=== PATIENT | female | born 1970 | race Caucasian/White ===

== ENCOUNTER → 2016-06-19 | Outpatient (CLI) | payer OTHER ==
--- NOTE | 2016-06-19 11:43 | REP ---
PELVIC SONOGRAPHY: HISTORY: Bilateral ovarian cysts. Comparison study September 14, 2015. FINDINGS: Transabdominal and transvaginal scanning are performed. Uterine dimensions are normal at 8.1 x 3.9 x 5.4 cm. Endometrial echo is 0.4 cm thick and centrally placed. Visualized bladder villarreal are smooth. No free fluid is seen. Normal right ovary is seen with dimensions of 2.9 x 1.6 x 2.0 cm. Left ovary measures 2.5 x 1.8 x 3.3 cm. There is a 1.6 cm follicle cyst in the left ovary. No significant ovarian cyst is seen. IMPRESSION: Normal pelvic sonography.
== END ==
LOC: M WHC 08:57
PROVIDERS: ATTEND Nurse Practitioner Family
DX: N83.201 Unspecified ovarian cyst, right side (principal); N83.202 Unspecified ovarian cyst, left side

== ENCOUNTER → 2016-08-23 | Outpatient (REF) | payer OTHER ==
[2016-08-23 13:06] LABS: BASO % 0.6 % (0.0-1.0); EOS # 0.4 K/mm3 (0.0-0.50); EOS % 4.3 % (0.0-3.0); LARGE UNSTAINED CELL # 0.2 K/mm3 (0.0-0.4); LARGE UNSTAINED CELL % 1.9 % (0.0-4.0); LYMPH # 2.5 K/mm3 (1.5-4.5); LYMPH % 29.1 % (24.0-44.0); MEAN CORPUSCULAR HEMOGLOBIN 34.1 pg (27.0-33.0); MEAN CORPUSCULAR HGB CONC 34.9 g/dl (32.0-36.5); MEAN CORPUSCULAR VOLUME 97.5 fl (80.0-96.0); MONO # 0.5 K/mm3 (0.0-0.8); NEUTROPHILS # 4.7 K/mm3 (1.8-7.7); NEUTROPHILS % 58.1 % (36.0-66.0); PLATELET COUNT, AUTOMATED 375 k/mm3 (150-450); RED CELL DISTRIBUTION WIDTH 12.7 % (11.5-14.5); WHITE BLOOD COUNT 8.1 K/mm3 (4.0-10.0)
[2016-08-23 13:43] LABS: ALBUMIN 4.1 GM/DL (3.2-5.2); ALBUMIN/GLOBULIN RATIO 1.37 (1.00-1.93); ALKALINE PHOSPHATASE 92 U/L (45-117); ALT/SGPT 32 U/L (12-78); ANION GAP 7 MEQ/L (8-16); AST/SGOT 24 U/L (15-37); BILIRUBIN,TOTAL 0.4 MG/DL (0.2-1.0); BLOOD UREA NITROGEN 10 MG/DL (7-18); CARBON DIOXIDE LEVEL 27 MEQ/L (21-32); CHLORIDE LEVEL 104 MEQ/L (98-107); CHOLESTEROL LEVEL 194 MG/DL (<200); CREATININE FOR GFR 0.73 MG/DL (0.55-1.02); GLOMERULAR FILTRATION RATE > 60.0 (>58); GLUCOSE, FASTING 82 MG/DL (70-105); POTASSIUM SERUM 4.1 MEQ/L (3.5-5.1); SODIUM LEVEL 138 MEQ/L (136-145); TOTAL PROTEIN 7.1 GM/DL (6.4-8.2); TRIGLYCERIDES LEVEL 82 MG/DL (<150)
== END ==
LOC: M LABDRAW1 11:51
PROVIDERS: ATTEND Emergency Medicine
DX: M47.812 Spondylosis without myelopathy or radiculopathy, cervical region (principal)

== ENCOUNTER → 2016-10-28 | Outpatient (REF) | payer OTHER ==
[~2016-10-28] MED LIST: MAGN400C2 PO; SERT-155 PO; VITA200015 PO
== END ==
LOC: M SFHCWAGY 10:10
PROVIDERS: ATTEND Nurse Practitioner Family
DX: Z12.4 Encounter for screening for malignant neoplasm of cervix (principal)

== ENCOUNTER → 2016-10-28 | Outpatient (CLI) | payer OTHER ==
--- NOTE | 2016-10-28 12:25 | REPMRS ---
Patient History The patient states she had a clinical breast exam in 10/2016. Family history of breast cancer in mother at age 58, colorectal cancer in mother, ovarian cancer in maternal aunt under age 50, breast cancer in maternal aunt at age 50 or over, and endometrial cancer in maternal aunt under age 50. Digital Woman Screen Mammo: October 28, 2016 - Exam #: [id number] Bilateral CC and MLO view(s) were taken. Technologist: Tricia Pittman, Technologist Prior study comparison: October 31, 2015, digital woman screen mammo performed at [facility]. October 25, 2014, digital woman screen mammo performed at [facility]. FINDINGS: The breast tissue is heterogeneously dense. This may lower the sensitivity of mammography. There has been no change in the appearance of the mammogram from the prior studies. There is a moderate amount of residual fibroglandular tissue which is fairly symmetric. There is no interval development of dominant mass, areas of architectural distortion, or clustered microcalcification typical of malignancy. ASSESSMENT: BI-RADS/ACR category 1 mammogram. Negative. Recommendation Routine screening mammogram in 1 year (for women over age 40). This mammogram was interpreted with the aid of an FDA-approved computer-aided dectection system. Electronically Signed By: Ra Fink MD 10/28/16 [id number]
== END ==
LOC: M WHC 09:15
PROVIDERS: ATTEND Nurse Practitioner Family
DX: Z12.31 Encounter for screening mammogram for malignant neoplasm of breast (principal)

== ENCOUNTER 2016-12-12 13:22 | Outpatient (CLI) | payer OTHER ==
[~2016-12-12] VITALS: Ht 162.6 cm; Wt 75.3 kg
[2016-12-12] MEDS ORDERED: LIDOCAINE 2% INJ 100 MG/5 ML SDV (FOR ANES.) As Ordered ONE (14:53)
[2016-12-12] MEDS ORDERED: PROPOFOL 200 MG/20 ML VIAL As Ordered ONE (14:53)
[2016-12-12] MEDS ORDERED: NS 1,000 ML IV SCH (15:15)
--- NOTE | 2016-12-12 15:34 | ROOR ---
Patient Name: Niurka Salazar Procedure Date: 12/12/2016 3:12 PM Date of : 1970 Age: 46 Room: [facility] Gender: Female Note Status: Finalized Procedure: Colonoscopy Indications: Screening in patient at increased risk: Colorectal cancer in mother before age 60, (age 38), Providers: Klaus MORA MD Referring MD: TAWNYA PUGA MD Requesting Provider: Medicines: Monitored Anesthesia Care Complications: No immediate complications. Procedure: Pre-Anesthesia Assessment: - The heart rate, respiratory rate, oxygen saturations, blood pressure, adequacy of pulmonary ventilation, and response to care were monitored throughout the procedure. The Colonoscope was introduced through the anus and advanced to the cecum, identified by appendiceal orifice and ileocecal valve. The colonoscopy was performed without difficulty. The patient tolerated the procedure well. The quality of the bowel preparation was good. Findings: The perianal and digital rectal examinations were normal. (Exam: Complete, Prep: Good or Excellent.) Small Internal Hemorrhoids. The entire examined colon appeared normal on direct and retroflexion views. Impression: - (Exam: Complete, Prep: Good or Excellent.) - Small Internal Hemorrhoids. - The entire examined colon is normal on direct and retroflexion views. - No specimens collected. Recommendation: - Repeat colonoscopy in 5 years for screening purposes. - Repeat colonoscopy to be determined based on genetic testing results. Klaus Mora MD Klaus MORA MD 12/12/2016 3:34:30 PM This report has been signed electronically. Number of Addenda: 0 Note Initiated On: 12/12/2016 3:12 PM Estimated Blood Loss: Estimated blood loss: none.
[2016-12-12 15:35] VITALS: BP 98/48
== END 2016-12-12 16:02 | disposition home or self-care (01) ==
LOC: M OPP 13:22
PROVIDERS: ATTEND Internal Medicine Gastroenterology
DX: Z12.11 Encounter for screening for malignant neoplasm of colon (principal); Z80.0 Family history of malignant neoplasm of digestive organs; K64.8 Other hemorrhoids; M19.90 Unspecified osteoarthritis, unspecified site; M54.5 Low back pain; M79.7 Fibromyalgia; F32.9 Major depressive disorder, single episode, unspecified; G43.909 Migraine, unspecified, not intractable, without status migrainosus; R06.83 Snoring; M25.569 Pain in unspecified knee; Z80.3 Family history of malignant neoplasm of breast; Z80.8 Family history of malignant neoplasm of other organs or systems; Z80.41 Family history of malignant neoplasm of ovary; F17.210 Nicotine dependence, cigarettes, uncomplicated; Z79.899 Other long term (current) drug therapy

== ENCOUNTER → 2017-08-22 | Outpatient (REF) | payer OTHER ==
[2017-08-22 12:39] LABS: TOTAL 25(OH) VITAMIN D 17.1 NG/ML (30.0-100.0)
[2017-08-22 12:56] LABS: ALBUMIN 4.2 GM/DL (3.2-5.2); ALBUMIN/GLOBULIN RATIO 1.35 (1.00-1.93); ALKALINE PHOSPHATASE 80 U/L (45-117); ALT/SGPT 54 U/L (12-78); ANION GAP 9 MEQ/L (8-16); AST/SGOT 25 U/L (7-37); BILIRUBIN,TOTAL 0.5 MG/DL (0.2-1.0); BLOOD UREA NITROGEN 10 MG/DL (7-18); CALCIUM LEVEL 9.2 MG/DL (8.5-10.1); CARBON DIOXIDE LEVEL 27 MEQ/L (21-32); CHLORIDE LEVEL 108 MEQ/L (98-107); CHOLESTEROL LEVEL 201 MG/DL (<200); CREATININE FOR GFR 0.82 MG/DL (0.55-1.30); GLOMERULAR FILTRATION RATE > 60.0 (>58); GLUCOSE, FASTING 92 MG/DL (70-100); HDL CHOLESTEROL 50 MG/DL (>40); LDL CHOLESTEROL 117.6 MG/DL (<100); NON-HDL-C 151 MG/DL; POTASSIUM SERUM 4.2 MEQ/L (3.5-5.1); SODIUM LEVEL 144 MEQ/L (136-145); TOTAL PROTEIN 7.3 GM/DL (6.4-8.2); TRIGLYCERIDES LEVEL 167 MG/DL (<150)
== END ==
LOC: M LABDRAW1 10:51
DX: M47.812 Spondylosis without myelopathy or radiculopathy, cervical region (principal)
CPT/HCPCS: 80053

== ENCOUNTER → 2018-03-23 | Outpatient (CLI) | payer OTHER ==
--- NOTE | 2018-03-23 10:57 | REPMRS ---
Patient History The patient states she had a clinical breast exam in 03/2018. Family history of colorectal cancer and breast cancer at age 58 in mother, breast cancer at age 50 or over in maternal aunt, ovarian cancer under age 50 and endometrial cancer under age 50 in maternal aunt. No Hormone Replacement Therapy Digital Woman Screen Mammo: March 23, 2018 - Exam #: [id number] Bilateral CC and MLO view(s) were taken. Technologist: Tricia Pittman, Technologist Prior study comparison: October 28, 2016, digital woman screen mammo performed at [facility]. October 31, 2015, digital woman screen mammo performed at [facility]. October 25, 2014, digital woman screen mammo performed at [facility]. FINDINGS: The breast tissue is heterogeneously dense. This may lower the sensitivity of mammography. There is a moderate amount of heterogeneously dense fibroglandular tissue which is fairly symmetric. There is no interval development of dominant mass, architectural distortion, or clustered microcalcification typical of malignancy. There has been no change in the appearance of the mammogram from the prior studies. 3-D tomosynthesis shows no additional findings. Assessment: BI-RADS/ACR category 1 mammogram. Negative. Recommendation Breast MRI of both breasts in 6 months. Routine screening mammogram of both breasts in 1 year (for women over age 40). This patient's Lifetime Breast Cancer RIsk is estimated at 22.3 %. Annual screening Breast MRI scanniing is recommended for patient's whose lifetime risk assessment is over 20%. This mammogram was interpreted with the aid of an FDA-approved computer-aided dectection system. Electronically Signed By: Alfonzo Bell MD 03/23/18 [id number]
== END ==
LOC: M WHC 09:34
PROVIDERS: ATTEND Nurse Practitioner Family
DX: Z12.31 Encounter for screening mammogram for malignant neoplasm of breast (principal); Z80.0 Family history of malignant neoplasm of digestive organs

== ENCOUNTER → 2018-03-23 | Outpatient (REF) | payer OTHER ==
[2018-03-26 14:54] LABS: HPV HYBRID CAPTURE II Negative (Negative)
== END ==
LOC: M SFHCWAGY 09:55
PROVIDERS: ATTEND Nurse Practitioner Family
DX: Z12.4 Encounter for screening for malignant neoplasm of cervix (principal); N88.0 Leukoplakia of cervix uteri
CPT/HCPCS: 87624; G0123

== ENCOUNTER → 2018-09-08 | Outpatient (REF) | payer OTHER ==
[~2018-09-08] MED LIST changes: -SERT-155 PO; +SERT50TA29 PO
[2018-09-08 15:49] LABS: BASO # 0.1 10^3/uL (0.0-0.2); BASO % 0.6 % (0.0-1.0); EOS # 0.2 10^3/uL (0.0-0.50); HEMATOCRIT 42.5 % (36.0-47.0); HEMOGLOBIN 14.4 g/dl (12.0-15.5); LYMPH # 2.6 10^3/uL (1.5-4.5); LYMPH % 23.4 % (24.0-44.0); MEAN CORPUSCULAR HGB CONC 33.9 g/dl (32.0-36.5); MEAN CORPUSCULAR VOLUME 97.3 fl (80.0-96.0); MONO # 0.7 10^3/uL (0.0-0.8); MONO % 6.3 % (0.0-5.0); NEUTROPHILS # 7.5 10^3/uL (1.8-7.7); NEUTROPHILS % 67.3 % (36.0-66.0); PLATELET COUNT, AUTOMATED 341 10^3/uL (150-450); RED BLOOD COUNT 4.37 10^6/uL (4.00-5.40); WHITE BLOOD COUNT 11.1 10^3/uL (4.0-10.0)
[2018-09-08 16:19] LABS: ALBUMIN 4.1 GM/DL (3.2-5.2); ALT/SGPT 58 U/L (12-78); BILIRUBIN,TOTAL 0.4 MG/DL (0.2-1.0); BLOOD UREA NITROGEN 11 MG/DL (7-18); CALCIUM LEVEL 8.9 MG/DL (8.5-10.1); CARBON DIOXIDE LEVEL 23 MEQ/L (21-32); CHLORIDE LEVEL 106 MEQ/L (98-107); GLOMERULAR FILTRATION RATE > 60.0 (>58); GLUCOSE, FASTING 89 MG/DL (70-100); POTASSIUM SERUM 4.5 MEQ/L (3.5-5.1); SODIUM LEVEL 138 MEQ/L (136-145); TOTAL PROTEIN 7.2 GM/DL (6.4-8.2)
[2018-09-09 11:44] LABS: HEPATITIS A ANTIBODY IGM NEGATIVE (NEGATIVE)
== END ==
LOC: M LABDRAW1 11:19
PROVIDERS: ATTEND Physician Assistant
DX: R10.9 Unspecified abdominal pain (principal)

== ENCOUNTER → 2018-09-28 | Outpatient (CLI) | payer OTHER ==
[~2018-09-28] MED LIST changes: +PROHANCE 279.3MG/ML 15ML VIAL (A9576) As Ordered ONE; +SERT-155 PO; -SERT50TA29 PO
--- NOTE | 2018-09-29 09:56 | REP ---
MRI BILATERAL BREASTS WITH AND WITHOUT CONTRAST: COMPARISON MAMMOGRAM: 03/23/2018. Marii lifetime risk of breast cancer 22.3%. TECHNIQUE: Multiple sequences were obtained in the axial, coronal and sagittal planes prior to and following the intravenous administration of 15 mL ProHance. Images are evaluated in the [email or web address] software including axial T1 fat dynamic imaging, subtraction images, color overlay images, CAD imaging and MIP reconstruction images. There is a moderate amount of symmetric fibroglandular tissue bilaterally. There is a moderate degree of background parenchymal enhancement bilaterally. Small 5 mm round nodule in the 12 o'clock region of the left breast measures 5 mm in diameter and demonstrates a persistent enhancement pattern consistent with a fibroadenoma. I do not see significant cystic change in either breast. There is no suspicious enhancing mass or morphologic abnormality bilaterally. There is no evidence of axillary adenopathy. IMPRESSION: BI-RADS Category 2, Benign bilateral breast MRI. 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 There is no suspicious enhancing mass or morphologic abnormality bilaterally. Yearly supplemental screening MRI of the breasts is recommended for patients with elevated lifetime risk of breast cancer 20% or greater, in addition to yearly screening mammography. Electronically Signed by Ra Fink MD 09/29/2018 05:06 P
== END ==
LOC: M RAD 15:49
PROVIDERS: ATTEND Nurse Practitioner Family
DX: Z80.3 Family history of malignant neoplasm of breast (principal); Z91.89 Other specified personal risk factors, not elsewhere classified
CPT/HCPCS: A9576; C8908

== ENCOUNTER → 2019-04-19 | Outpatient (REF) | payer OTHER ==
[~2019-04-19] MED LIST changes: -PROHANCE 279.3MG/ML 15ML VIAL (A9576) As Ordered ONE; -SERT-155 PO; +SERT50TA29 PO
[2019-04-19 20:05] LABS: INFLUENZA A AMPLIFICATION NEGATIVE (NEGATIVE); INFLUENZA B AMPLIFICATION NEGATIVE (NEGATIVE)
== END ==
LOC: M LAB REF 18:49
PROVIDERS: ATTEND Physician Assistant Medical
DX: J11.1 Influenza due to unidentified influenza virus with other respiratory manifestations (principal)

== ENCOUNTER → 2019-11-04 | Outpatient (CLI) | payer OTHER ==
--- NOTE | 2019-11-04 11:17 | REPMRS ---
Patient History The patient states she has not had a clinical breast exam in over a year. Family history of colorectal cancer and breast cancer at age 58 in mother, breast cancer at age 50 or over in maternal aunt, ovarian cancer under age 50 and endometrial cancer under age 50 in maternal aunt. No Hormone Replacement Therapy Digital Woman Screen Mammo: November 04, 2019 - Exam #: [id number] Bilateral CC and MLO view(s) were taken. Technologist: Lorena Shaver, Technologist Prior study comparison: March 23, 2018, bilateral digital woman screen mammo performed at [facility]. October 28, 2016, digital woman screen mammo performed at [facility]. October 31, 2015, digital woman screen mammo performed at [facility]. FINDINGS: There are scattered fibroglandular densities. The Volpara volumetric breast density category is:B. There has been no change in the appearance of the mammogram from the prior studies. There is a mild amount of scattered fibroglandular density which is fairly symmetric. There is no interval development of dominant mass, architectural distortion, or grouped microcalcification suggestive of malignancy. 3-D tomosynthesis shows no additional findings. Assessment: BI-RADS/ACR category 1 mammogram. Negative Mammogram. Recommendation Breast MRI of both breasts in 6 months. Routine screening mammogram of both breasts in 1 year (for women over age 40). This patient's Lifetime Breast Cancer Risk is estimated at 21.4 %. Annual screening Breast MRI scanniing is recommended for patient's whose lifetime risk assessment is over 20%. This mammogram was interpreted with the aid of an FDA-approved computer-aided dectection system. Electronically Signed By: Alfonzo Bell MD 11/04/19 0406
== END ==
LOC: M WHC 09:14
PROVIDERS: ATTEND Nurse Practitioner Family
DX: Z12.31 Encounter for screening mammogram for malignant neoplasm of breast (principal)

== ENCOUNTER → 2020-09-06 | Outpatient (CLI) | payer OTHER ==
[2020-09-06 15:52] LABS: ALBUMIN 3.8 GM/DL (3.2-5.2); ALT/SGPT 48 U/L (12-78); BILIRUBIN,TOTAL 0.4 MG/DL (0.2-1.0); BLOOD UREA NITROGEN 11 MG/DL (7-18); CALCIUM LEVEL 8.9 MG/DL (8.5-10.1); CARBON DIOXIDE LEVEL 29 MEQ/L (21-32); CHLORIDE LEVEL 107 MEQ/L (98-107); CHOLESTEROL LEVEL 152 MG/DL (<200); GLOMERULAR FILTRATION RATE > 60.0 (>51); GLUCOSE, FASTING 81 MG/DL (70-100); HDL CHOLESTEROL 51 MG/DL (>40); LDL CHOLESTEROL 84 MG/DL (<100); NON-HDL-C 101 MG/DL; POTASSIUM SERUM 4.6 MEQ/L (3.5-5.1); SODIUM LEVEL 139 MEQ/L (136-145); TOTAL PROTEIN 6.2 GM/DL (6.4-8.2); TRIGLYCERIDES LEVEL 85 MG/DL (<150)
== END ==
LOC: M PLALAB 11:03
PROVIDERS: ATTEND Nurse Practitioner Family
DX: Z00.00 Encounter for general adult medical examination without abnormal findings (principal)

== ENCOUNTER → 2020-10-17 | Outpatient (CLI) | payer OTHER ==
--- NOTE | 2020-10-17 09:34 | REP ---
INDICATION: N93.0 AUB. COMPARISON: 06/19/2016. TECHNIQUE: Multiple ultrasonographic images of the pelvis including transabdominal, endovaginal and Doppler ultrasound. FINDINGS: The uterus is anteverted and normal size measuring 8.9 x 4.3 x 4.7 cm. The myometrium is unremarkable. The endometrium measures 8 mm thickness, this is within the normal range, Right ovary: There is a dominant follicle measuring 1.9 x 2.0 x 1.4 cm. Including the follicle the right ovary is normal size measuring 4.7 x 1.9 x 2.5 cm. Left ovary: Left ovary is normal size measuring 2.5 x 1.3 x 1.9 cm. There is no dominant follicle, cyst or mass. There is vascular flow in both ovaries with the Doppler resistive index in the parenchymal arteries of the right ovary measuring 0.51 and left ovary 0.63. No free pelvic fluid is identified. The bladder is adequately distended. And is otherwise unremarkable. IMPRESSION: Dominant right ovarian follicle. Otherwise, negative pelvic ultrasound. <Electronically signed by Ra Rogers > 10/17/20 1220
== END ==
LOC: M WHC 07:49
PROVIDERS: ATTEND Nurse Practitioner Women's Health
DX: N93.9 Abnormal uterine and vaginal bleeding, unspecified (principal)

== ENCOUNTER → 2020-11-07 | Outpatient (REF) | payer OTHER | LOC: M SFHCWAGY 13:11 | PROVIDERS: ATTEND Nurse Practitioner Women's Health | DX: Z12.4 Encounter for screening for malignant neoplasm of cervix (principal); R87.612 Low grade squamous intraepithelial lesion on cytologic smear of cervix (LGSIL) | CPT/HCPCS: 87624; G0123 ==

== ENCOUNTER → 2020-11-07 | Outpatient (CLI) | payer OTHER ==
--- NOTE | 2020-11-07 11:27 | REPMRS ---
Patient History The patient states she has not had a clinical breast exam in over a year. Family history of colorectal cancer and breast cancer at age 58 in mother, breast cancer at age 50 or over in maternal aunt, ovarian cancer under age 50 and endometrial cancer under age 50 in maternal aunt. No Hormone Replacement Therapy Patient states no breast complaints today. Patient has signed MRS History Sheet. Digital Woman Screen Mammo: November 07, 2020 - Exam #: [id number] Bilateral CC and MLO view(s) were taken. Technologist: Ashleigh Og, Technologist Prior study comparison: November 04, 2019, bilateral digital woman screen mammo performed at [facility]. March 23, 2018, bilateral digital woman screen mammo performed at [facility]. October 28, 2016, digital woman screen mammo performed at [facility]. FINDINGS: The breast tissue is heterogeneously dense. This may lower the sensitivity of mammography. The Volpara volumetric breast density category is: C. There is a moderate amount of heterogeneously dense fibroglandular tissue which is fairly symmetric. There is no interval development of dominant mass, architectural distortion, or grouped microcalcification typical of malignancy. There has been no change in the appearance of the mammogram from the prior studies. 3-D tomosynthesis shows no additional findings. Assessment: BI-RADS/ACR category 1 mammogram. Negative Mammogram. Recommendation Breast MRI of both breasts in 6 months. Routine screening mammogram of both breasts in 1 year (for women over age 40). This patient's [facility] Lifetime Breast Cancer RIsk is estimated at 20.9 %. Patients whose estimated lifetime breast cancer risk assessment is greater than 20% merit annual screening breast MRI scanning in addition to annual mammography. This mammogram was interpreted with the aid of an FDA-approved computer-aided dectection system. Electronically Signed By: Alfonzo Bell MD 11/07/20 112
== END ==
LOC: M WHC 09:55
PROVIDERS: ATTEND Nurse Practitioner Women's Health
DX: Z12.31 Encounter for screening mammogram for malignant neoplasm of breast (principal); Z80.0 Family history of malignant neoplasm of digestive organs; Z80.3 Family history of malignant neoplasm of breast; Z80.41 Family history of malignant neoplasm of ovary; Z80.49 Family history of malignant neoplasm of other genital organs

== ENCOUNTER → 2021-09-06 | Outpatient (CLI) | payer OTHER ==
[2021-09-06 14:25] LABS: ALBUMIN 4.6 GM/DL (3.2-5.2); ALT/SGPT 37 U/L (12-78); BILIRUBIN,TOTAL 1.6 MG/DL (0.2-1.0); BLOOD UREA NITROGEN 10 MG/DL (7-18); CALCIUM LEVEL 9.9 MG/DL (8.5-10.1); CARBON DIOXIDE LEVEL 31 MEQ/L (21-32); CHLORIDE LEVEL 107 MEQ/L (98-107); CHOLESTEROL LEVEL 165 MG/DL (<200); CHOLESTEROL RISK RATIO 2.462 (<5); CREATININE FOR GFR 0.71 MG/DL (0.55-1.30); GLOMERULAR FILTRATION RATE > 60.0 (>51); GLUCOSE, FASTING 93 MG/DL (70-100); HDL CHOLESTEROL 67 MG/DL (>40); LDL CHOLESTEROL 78 MG/DL (<100); NON-HDL-C 98 MG/DL; SODIUM LEVEL 140 MEQ/L (136-145); TOTAL PROTEIN 6.9 GM/DL (6.4-8.2); TRIGLYCERIDES LEVEL 99 MG/DL (<150)
[2021-09-06 14:34] LABS: TOTAL 25(OH) VITAMIN D 47.7 NG/ML (30.0-100.0)
== END ==
LOC: M PLALAB 10:13
PROVIDERS: ATTEND Nurse Practitioner Family
DX: Z00.00 Encounter for general adult medical examination without abnormal findings (principal); E55.9 Vitamin D deficiency, unspecified

== ENCOUNTER → 2021-12-21 | Outpatient (REF) | payer OTHER | LOC: M SFHCWAGY 12:51 | PROVIDERS: ATTEND Specialist | DX: Z12.4 Encounter for screening for malignant neoplasm of cervix (principal); R87.612 Low grade squamous intraepithelial lesion on cytologic smear of cervix (LGSIL) | CPT/HCPCS: 87624; G0123 ==

== ENCOUNTER → 2021-12-21 | Outpatient (CLI) | payer OTHER | LOC: M WHC 08:55 | PROVIDERS: ATTEND Specialist | DX: Z12.31 Encounter for screening mammogram for malignant neoplasm of breast (principal); Z80.3 Family history of malignant neoplasm of breast; Z80.0 Family history of malignant neoplasm of digestive organs; Z80.41 Family history of malignant neoplasm of ovary; Z80.49 Family history of malignant neoplasm of other genital organs ==

== ENCOUNTER → 2022-01-22 | Outpatient (CLI) | payer OTHER ==
[~2022-01-22] MED LIST changes: +APPLTAB3 PO; +DULC5TAB PO; +MULT-90 PO; +amberen
== END ==
LOC: M LABSMTC 09:33
PROVIDERS: ATTEND Anesthesiology
DX: Z01.812 Encounter for preprocedural laboratory examination (principal); Z11.52 Encounter for screening for COVID-19

== ENCOUNTER 2022-01-24 09:19 | Day surgery (SDC) | payer OTHER ==
[~2022-01-24] VITALS: Ht 162.6 cm; Wt 52.6 kg
[~2022-01-24 09:19] MED LIST changes: +NS 1,000 ML IV ONE
[2022-01-24] MEDS ORDERED: propofoL 200 MG/20 ML VIAL As Ordered ONE (12:07)
[2022-01-24] MEDS ORDERED: LIDOCAINE 2% 100MG/5ML SDV (FOR ANES.) As Ordered ONE (12:07)
[2022-01-24 12:41] VITALS: BP 110/57
== END 2022-01-24 12:57 | disposition home or self-care (01) ==
LOC: M OPP 09:19
PROVIDERS: ATTEND Internal Medicine Gastroenterology
DX: Z12.11 Encounter for screening for malignant neoplasm of colon (principal); Z80.0 Family history of malignant neoplasm of digestive organs; Q43.8 Other specified congenital malformations of intestine; Z79.899 Other long term (current) drug therapy; F17.200 Nicotine dependence, unspecified, uncomplicated; G47.30 Sleep apnea, unspecified; M79.7 Fibromyalgia; Z80.3 Family history of malignant neoplasm of breast; Z80.41 Family history of malignant neoplasm of ovary; Z80.8 Family history of malignant neoplasm of other organs or systems

== ENCOUNTER → 2022-03-18 | Outpatient (REF) | payer OTHER ==
[~2022-03-18] MED LIST changes: -NS 1,000 ML IV ONE
== END ==
LOC: M PLALAB 15:57
PROVIDERS: ATTEND Specialist
DX: N87.0 Mild cervical dysplasia (principal)

== ENCOUNTER → 2022-09-20 | Outpatient (CLI) | payer OTHER ==
[2022-09-20 14:26] LABS: ALBUMIN 4.2 G/DL (3.2-5.2); ALKALINE PHOSPHATASE 79 U/L (46-116); ALT/SGPT 47 U/L (7.0-40); AST/SGOT 26 U/L (<34); BILIRUBIN,TOTAL 0.6 MG/DL (0.3-1.2); BLOOD UREA NITROGEN 11 MG/DL (9-23); CALCIUM LEVEL 9.7 MG/DL (8.5-10.1); CARBON DIOXIDE LEVEL 28 MMOL/L (20-31); CHLORIDE LEVEL 105 MMOL/L (98-107); CHOLESTEROL LEVEL 154 MG/DL (<200); CHOLESTEROL RISK RATIO 2.24 (<5); CREATININE FOR GFR 0.75 MG/DL (0.55-1.30); GLOMERULAR FILTRATION RATE > 60.0 (>51); GLUCOSE, FASTING 85 MG/DL (60-100); HDL CHOLESTEROL 68.7 MG/DL (>40); LDL CHOLESTEROL 72.9 MG/DL (<100); NON-HDL-C 85.3 MG/DL; POTASSIUM SERUM 4.3 MMOL/L (3.5-5.1); SODIUM LEVEL 139 MMOL/L (136-145); TOTAL PROTEIN 6.7 G/DL (5.7-8.2); TRIGLYCERIDES LEVEL 62 MG/DL (<150)
[2022-09-20 14:31] LABS: TOTAL 25(OH) VITAMIN D 50.6 NG/ML (20.0-100.0)
== END ==
LOC: M PLALAB 11:33
PROVIDERS: ATTEND Nurse Practitioner Family
DX: Z00.00 Encounter for general adult medical examination without abnormal findings (principal); E55.9 Vitamin D deficiency, unspecified

== ENCOUNTER → 2022-12-23 | Outpatient (REF) | payer OTHER | LOC: M SFHCWAGY 13:20 | PROVIDERS: ATTEND Specialist | DX: Z12.4 Encounter for screening for malignant neoplasm of cervix (principal); R87.610 Atypical squamous cells of undetermined significance on cytologic smear of cervix (ASC-US) | CPT/HCPCS: 87624; G0123 ==

== ENCOUNTER → 2023-05-26 | Outpatient (CLI) | payer OTHER | LOC: M PLAIMG 12:26 | PROVIDERS: ATTEND Nurse Practitioner Family | DX: M54.50 Low back pain, unspecified (principal); M47.816 Spondylosis without myelopathy or radiculopathy, lumbar region ==

== ENCOUNTER → 2023-08-01 | Outpatient (CLI) | payer OTHER | LOC: M PLAIMG 11:11 | PROVIDERS: ATTEND Physician Assistant Medical | DX: M25.532 Pain in left wrist (principal) ==

== ENCOUNTER → 2023-08-15 | Outpatient (CLI) | payer OTHER ==
[2023-08-15 10:06] LABS: BASO # 0.1 10^3/uL (0.0-0.2); BASO % 0.8 % (0.0-1.0); EOS # 0.4 10^3/uL (0.0-0.5); EOS % 5.3 % (0.0-3.0); HEMATOCRIT 43.8 % (36.0-47.0); LYMPH % 37.8 % (24.0-44.0); MEAN CORPUSCULAR HEMOGLOBIN 34.2 pg (27.0-33.0); MEAN CORPUSCULAR HGB CONC 34.2 g/dl (32.0-36.5); MONO # 0.6 10^3/uL (0.0-0.8); MONO % 6.9 % (2.0-8.0); NEUTROPHILS # 3.9 10^3/uL (1.5-8.5); NEUTROPHILS % 48.8 % (36.0-66.0); PLATELET COUNT, AUTOMATED 283 10^3/uL (150-450); RED BLOOD COUNT 4.38 10^6/uL (4.00-5.40); WHITE BLOOD COUNT 7.9 10^3/uL (4.0-10.0)
[2023-08-15 10:35] LABS: URIC ACID 3.5 MG/DL (3.1-7.8)
[2023-08-15 10:38] LABS: ALKALINE PHOSPHATASE 94 U/L (46-116); ALT/SGPT 48 U/L (7.0-40); AST/SGOT 21 U/L (<34); BILIRUBIN,TOTAL 0.3 MG/DL (0.3-1.2); BLOOD UREA NITROGEN 6 MG/DL (9-23); CALCIUM LEVEL 9.7 MG/DL (8.5-10.1); CARBON DIOXIDE LEVEL 30 MMOL/L (20-31); CHLORIDE LEVEL 107 MMOL/L (98-107); CREATININE FOR GFR 0.68 MG/DL (0.55-1.30); GLOMERULAR FILTRATION RATE > 60.0 (>51); GLUCOSE, FASTING 99 MG/DL (60-100); POTASSIUM SERUM 4.2 MMOL/L (3.5-5.1); SODIUM LEVEL 139 MMOL/L (136-145); TOTAL PROTEIN 6.5 G/DL (5.7-8.2)
== END ==
LOC: M LAB 09:20
PROVIDERS: ATTEND Nurse Practitioner Family
DX: M25.532 Pain in left wrist (principal)

== ENCOUNTER → 2024-04-06 | Outpatient (CLI) | payer OTHER | LOC: M WHC 14:53 | PROVIDERS: ATTEND Specialist | DX: Z12.31 Encounter for screening mammogram for malignant neoplasm of breast (principal); Z80.3 Family history of malignant neoplasm of breast; Z80.0 Family history of malignant neoplasm of digestive organs; Z80.41 Family history of malignant neoplasm of ovary; R92.333 Mammographic heterogeneous density, bilateral breasts; R92.8 Other abnormal and inconclusive findings on diagnostic imaging of breast ==

== ENCOUNTER → 2024-04-06 | Outpatient (REF) | payer OTHER | LOC: M SFHCWAGY 17:12 | PROVIDERS: ATTEND Specialist | DX: Z01.419 Encounter for gynecological examination (general) (routine) without abnormal findings (principal) | CPT/HCPCS: 87624; G0123 ==

== ENCOUNTER → 2024-04-21 | Outpatient (CLI) | payer OTHER | LOC: M WHC 09:24 | PROVIDERS: ATTEND Specialist | DX: R92.8 Other abnormal and inconclusive findings on diagnostic imaging of breast (principal) | CPT/HCPCS: 77065; G0279 ==

== ENCOUNTER → 2024-05-31 | Outpatient (REF) | payer OTHER | LOC: M SFHCWAGY 15:08 | PROVIDERS: ATTEND Specialist | DX: R87.612 Low grade squamous intraepithelial lesion on cytologic smear of cervix (LGSIL) (principal) ==

== ENCOUNTER → 2024-12-07 | Outpatient (REF) | payer OTHER ==
[2024-12-10 15:57] LABS: HPV APTIMA Detected (Not Detected)
== END ==
LOC: M LAB REF 17:39
PROVIDERS: ATTEND Specialist
DX: N87.0 Mild cervical dysplasia (principal)
CPT/HCPCS: 87624; G0123

== ENCOUNTER → 2025-02-27 | Outpatient (REF) | payer OTHER | LOC: M LAB REF 13:57 | PROVIDERS: ATTEND Registered Nurse | DX: S60.452A Superficial foreign body of right middle finger, initial encounter (principal); X58.XXXA Exposure to other specified factors, initial encounter; Y92.9 Unspecified place or not applicable; Y93.9 Activity, unspecified; Y99.9 Unspecified external cause status ==